=== PATIENT | female | born 1975 | race Caucasian/White ===

== ENCOUNTER → 2020-11-19 | Outpatient (CLI) | payer OTHER ==
--- NOTE | 2020-11-19 14:46 | RAD ---
Transabdominal and endovaginal pelvic ultrasound for heavy vaginal bleeding, abnormal uterine bleedin g. TECHNIQUE AND FINDINGS: Real-time grayscale and color and spectral Doppler evaluation of the pelvic o rgans is performed from both transabdominal and endovaginal approach. The urinary bladder is decompre ssed, providing a suboptimal acoustic window for transabdominal images. The uterus measures 9.1 x 5.8 x 4.8 cm. The endometrium measures 13 mm in thickness, which can be physiologic depending on phase o f menstrual cycle. No focal myometrial or endometrial abnormalities are identified. No free fluid is seen within the pelvis. The right ovary measures 2.5 x 3.9 x 1.9 cm in the left measures 2.5 x 1.7 x 1.6 cm. Both ovaries are normal in morphology and demonstrate normal blood flow. No abnormalities of the cervix are identified. IMPRESSION: 1. No sonographically evident pelvic abnormalities. There is borderline thickening of the endometrium which can be normal in the secretory phase of the menstrual cycle. Electronically signed by: Kole Benitez MD (11/19/2020 2:43 PM) [id number]
== END ==
LOC: EEVIPCON 13:00 → US 13:04
PROVIDERS: ATTEND Preventive Medicine Occupational Medicine
DX: N93.9 Abnormal uterine and vaginal bleeding, unspecified (principal)
CPT/HCPCS: 76830; 76856